=== PATIENT | female | born 1945 | race Caucasian/White ===

== ENCOUNTER 2021-01-26 14:24 | Emergency (ER) | payer MEDICARE, SELFPAY ==
--- NOTE | 2021-01-26 14:26 | ED.URI ---
HPI - URI/Sore Throat General Chief Complaint: Upper Respiratory Infection Stated Complaint: COUGH Time Seen by Provider: 01/26/21 14:26 Source: patient and RN notes reviewed History of Present Illness HPI Narrative: Patient is a 75-year-old female who presents the urgent care with complaints of a deep cough. Patient states that it started on , she called her doctor's office on Wednesday, and was placed on amoxicillin and 10 mg of prednisone daily. Patient states that she has been getting some stuff out but does feel like she is using her inhaler more frequently. Patient denies of any fevers, nausea, vomiting, congestion. States that she had a aortic valve replacement in November and is being very cautious . Patient states that she is supposed to start cardiac rehab tomorrow and is worried about walking on the treadmill for 25 minutes. Patient denies of any chest pains. No other acute complaints. No acute distress noted. Patient aware of the plan of care. Some parts of this dictation were generated by voice recognition software and may contain typographical and/or grammatical inaccuracies. Related Data Home Medications Medication Instructions Recorded Confirmed acetaminophen [Tylenol] 650 mg PO ONCE 01/23/21 01/23/21 albuterol sulfate 1 puff INHALATION DAILY PRN 01/23/21 01/23/21 ascorbic acid (vitamin C) [Vitamin 500 mg PO DAILY 01/23/21 01/23/21 C] azelastine 1 spray INTRANASAL Q12H 01/23/21 01/23/21 cetirizine [Zyrtec] 10 mg PO DAILY 01/23/21 01/23/21 cholecalciferol (vitamin D3) 125 mcg PO DAILY 01/23/21 01/23/21 [Vitamin D3] clopidogrel 75 mg PO DAILY 01/23/21 01/23/21 coenzyme Q10 [Co Q-10] 100 mg PO DAILY 01/23/21 01/23/21 cyanocobalamin-cobamamide [B12] 1 ronaldo SUBLINGUAL 01/23/21 dexlansoprazole [Dexilant] 60 mg PO DAILY 01/23/21 01/23/21 hydrochlorothiazide 25 mg PO DAILY 01/23/21 01/23/21 multivitamin 1 tablet PO DAILY 01/23/21 01/23/21 omega 3-fzz-isl-fish oil [Fish Oil] 1 cap PO 01/23/21 rosuvastatin [Crestor] 10 mg PO DAILY 01/23/21 01/23/21 Allergies Allergy/AdvReac Type Severity Reaction Status Date / Time No Known Allergies Allergy Unknown Verified 01/26/21 14:32 Review of Systems Review of Systems: Narrative: CONSTITUTIONAL: Denies fever, chills, or sweats. EYES: Denies visual changes, redness, or discharge. ENT: Denies rhinorrhea, congestion, sore throat, or otalgia. CARDIOVASCULAR: Denies chest pain, palpitations, or edema. RESPIRATORY: Reports of deep harsh cough with intermittent production and dyspnea GASTROINTESTINAL: Denies abdominal pain, nausea, vomiting, or diarrhea. GENITOURINARY: Denies dysuria or hematuria. SKIN: Denies rash or itching. MUSCULOSKELETAL: Denies back pain, joint pain, or myalgia. NEUROLOGIC: Denies headache, numbness, or weakness. All other systems reviewed are negative, except as documented in HPI. [facility] Family History Family History (Updated 01/23/21 @ 12:12 by Eula Jenkins RN) Father HLD (hyperlipidemia) Cerebrovascular accident Sibling HLD (hyperlipidemia) Mother Cancer Social History Social History Smoking status: Never smoker Second hand tobacco smoke exposure: Yes ( former smoker and parents smoked as she grew up) Comments At the time of my signature, I reviewed and agree with the nursing past medical, surgical, social, and family history. There is no relevant family history pertinent to the patient complaint. Exam Narrative: Exam Narrative: GENERAL: This is a well-nourished, well-developed patient, in no apparent distress. HEAD: normocephalic, atraumatic. EYES: PERRL. Sclera clear/white. Vision is grossly intact. EARS: External ears normal NOSE: External nose normal with no obvious nasal discharge, nares without redness, no rhinorrhea. THROAT: Mucous membranes moist, posterior pharynx clear. NECK: Neck supple CARDIOVASCULAR: Regular rate and rhythm with murmurs RESPIRATORY: Clear to auscultation. Breath soun
[2021-01-26 14:35] VITALS: BP 102/78; PULSE 79; RESP 16; TEMP 36.3; O2SAT 98
== END 2021-01-26 14:50 | disposition home or self-care (01) ==
PROVIDERS: Emergency Provider Nurse Practitioner Family
DX: J40 Bronchitis, not specified as acute or chronic (principal); K21.9 Gastro-esophageal reflux disease without esophagitis; Z95.2 Presence of prosthetic heart valve; M17.12 Unilateral primary osteoarthritis, left knee; M16.11 Unilateral primary osteoarthritis, right hip
CPT/HCPCS: 99213; G0463

== ENCOUNTER 2021-02-20 07:30 | Outpatient (RCR) | payer MEDICARE, SELFPAY ==
[2021-01-23 12:08] VITALS: BP 160/80; PULSE 67; RESP 16; TEMP 35.6; O2SAT 98
== END 2021-02-20 09:20 | disposition home or self-care (01) ==
LOC: ANHCPREHAB 07:30
DX: Z95.2 Presence of prosthetic heart valve (principal)
CPT/HCPCS: 93798

== ENCOUNTER 2022-02-05 07:46 | Outpatient (CLI) | payer MEDICARE, SELFPAY ==
--- NOTE | ~2022-02-05 | MR_ITS ---
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 Sequences included sagittal T1-weighted FSE, sagittal fluid sensitive FSE STIR, coronal PD-weighted FS FSE, coronal T1-weighted FSE, axial PD-weighted FS FSE, and axial PD-weighted FSE. COMPARISON: None FINDINGS: Medial ankle ligaments: Deep and superficial deltoid ligaments as well as the spring ligament are normal. Lateral ankle ligaments: The anterior and posterior inferior tibiofibular ligaments are normal. The anterior talofibular, calc aneofibular and posterior talofibular ligaments are normal. Tendons: Achilles tendon is normal. The peroneus longus and brevis tendons are normal. The tibialis anterior a nd extensor hallucis longus and extensor digitorum longus tendons are normal. The tibialis posterior, flexor digitorum longus and flexor hallucis longus tendons are normal. Plantar fascia: Relatively low signal intensity thickening of the proximal 3.5 cm of the central component of the vicki ntar aponeurosis consistent with provided history of plantar fibromatosis. Bones/other: Bone alignment is normal. There is marrow edema along an oblique irregular low signal intensity likel y stress fracture line at the inferior aspect of the posterior calcaneus. 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 Additional mild subarticular edema at the central aspect of the proximal articular surface of the navicular. Marrow signal is otherwise normal throughout with no other fractures or pathologic marrow replacing process. Fluid: Physiologic amount of fluid in the joint spaces. No abnormal fluid collections. IMPRESSION: 1. Likely stress fracture line at the plantar aspect of the posterior calcaneus. 2. Thickening of the proximal central component of the plantar aponeurosis consistent with provided h istory of plantar fibromatosis. Reviewed, dictated and finalized at location A. IMPRESSION: 1. Likely stress fracture line at the plantar aspect of the posterior calcaneus . 2. Thickening of the proximal central component of the plantar aponeurosis cons istent with provided history of plantar fibromatosis.
== END 2022-02-05 07:47 | disposition home or self-care (01) ==
PROVIDERS: Visit Provider Podiatrist Foot & Ankle Surgery
DX: M72.2 Plantar fascial fibromatosis (principal); R93.7 Abnormal findings on diagnostic imaging of other parts of musculoskeletal system
CPT/HCPCS: 73718

== ENCOUNTER → 2022-09-04 08:55 | Outpatient (CLI) | payer MEDICARE, SELFPAY ==
--- NOTE | ~2022-09-04 | MR_ITS ---
EXAMINATION: MR foot RT wo con DATE: 09/04/2022 09:40 INDICATION: Right foot stress fracture TECHNIQUE: Magnetic resonance imaging (MRI) of the affected ankle was performed without intravenous c ontrast. Sequences included axial and coronal PD-weighted FS FSE, sagittal and coronal T1-weighted FS E, axial PD-weighted FSE and sagittal fluid sensitive FSE STIR. COMPARISON: None. FINDINGS: Medial ankle ligaments: Deep and superficial deltoid ligaments as well as the spring ligament are normal. Lateral ankle ligaments: The anterior and posterior inferior tibiofibular ligaments are normal. The anterior talofibular, calc aneofibular and posterior talofibular ligaments are normal. Tendons: Minimal Achilles tendinosis without tear. Small enthesophyte at the calcaneal insertion of the Achill es tendon. The peroneus longus and brevis tendons are normal. The tibialis anterior and extensor goodwin ucis longus and extensor digitorum longus tendons are normal. The tibialis posterior, flexor digitoru m longus and flexor hallucis longus tendons are normal. Plantar fascia: Small plantar calcaneal enthesophyte with prominent thickening and mild increased signal of the centr al component of the plantar aponeurosis which appears to extend to its origin. There is minimal marro w edema at its calcaneal origin consistent with likely chronic moderate enthesopathy with superimpose d mild acute plantar fasciitis. Bones/other: There is prominent marrow edema in the central portion of the calcaneus surrounding 2 linear low sign al intensity stress fracture lines each extending approximately a millimeter cephalad from the planta r cortex, the first the junction of the anterior to middle thirds of the calcaneus and the second at the junction of the middle and posterior thirds. Bone alignment is normal. No other fractures identif ied. Mild osteoarthritis at the right ankle and majority of the joints in the mid and hindfoot. Lisfr anc ligament complex is normal. Fluid: Physiologic amount fluid in the joint spaces. No bursitis, tenosynovitis or other abnormal fluid marco ections. IMPRESSION: 1. Right-sided marrow edema associated with a couple stress fracture extending cephalad from the plan tar margin of the calcaneus 2. 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 Reviewed, dictated and finalized at location A. RECORDER IMPRESSION: 1. Right-sided marrow edema associated with a couple stress fracture extending cephalad from the plantar margin of the calcaneus 2. 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
== END ==
PROVIDERS: PCP Podiatrist Foot & Ankle Surgery; Visit Provider Podiatrist Foot & Ankle Surgery
DX: M84.374K Stress fracture, right foot, subsequent encounter for fracture with nonunion (principal)
CPT/HCPCS: 73718

== ENCOUNTER 2023-05-11 08:01 | Emergency (ER) | payer MEDICARE, SELFPAY ==
[2023-05-11 08:14] VITALS: BP 122/67; PULSE 84; RESP 16; TEMP 36.6; O2SAT 100
--- NOTE | 2023-05-11 08:17 | ED.URI ---
HPI - URI/Sore Throat General Chief Complaint: Upper Respiratory Infection Stated Complaint: COUGH Time Seen by Provider: 05/11/23 08:15 Source: patient Mode of arrival: ambulatory Limitations: no limitations History of Present Illness HPI Narrative: Kenyatta is an 78-year-old female patient presenting to the clinic today with complaints of a cough x3 weeks. She reports she has been placed on Augmentin azithromycin by her provider. She does have a history of asthma and sinusitis. She denies any shortness of breath and is using her albuterol inhaler 4 times a day for cough. She denies any fever or chills. Cough is nonproductive. MD elicited complaint: cough Related Data Home Medications Medication Instructions Recorded Confirmed albuterol sulfate 90 mcg/actuation 1 puff inhalation DAILY PRN Cough 01/23/21 05/11/23 aerosol inhaler ascorbic acid (vitamin C) 500 mg 500 mg PO DAILY 01/23/21 05/11/23 tablet (Vitamin C) azelastine 137 mcg (0.1 %) nasal 1 spray intranasal Q12H allergy 01/23/21 05/11/23 spray aerosol cetirizine 10 mg tablet (Zyrtec) 10 mg PO DAILY 01/23/21 05/11/23 cholecalciferol (vitamin D3) 125 125 mcg PO DAILY 01/23/21 05/11/23 mcg (5,000 unit) tablet (Vitamin D3) coenzyme Q10 100 mg capsule (Co 100 mg PO DAILY 01/23/21 05/11/23 Q-10) cyanocobalamin (B12)-cobamamide 1 ronaldo sublingual DAILY 01/23/21 05/11/23 5,000 mcg-100 mcg sublingual lozenge (B12) dexlansoprazole 60 mg 60 mg PO DAILY 01/23/21 01/26/21 capsule,biphase delayed release (Dexilant) hydrochlorothiazide 25 mg tablet 25 mg PO DAILY 01/23/21 01/26/21 multivitamin 1 tablet PO DAILY 01/23/21 01/26/21 omega 6-wbk-ijs-fish oil 900 1 cap PO DAILY 01/23/21 01/26/21 mg-1,400 mg capsule,delayed release (Fish Oil) rosuvastatin 10 mg tablet (Crestor) 10 mg PO DAILY 01/23/21 05/11/23 propranolol 60 mg capsule,24 60 mg PO DAILY 05/11/23 05/11/23 hr,extended release valsartan 160 mg tablet mg 05/11/23 05/11/23 Allergies Allergy/AdvReac Type Severity Reaction Status Date / Time No Known Allergies Allergy Unknown Verified 05/11/23 08:14 Review of Systems Review of Systems: Pertinent positives per HPI. Patient denies any fever, chills, rash, headache, visual changes, dizziness, shortness of breath, chest pain, palpitations, nausea, vomiting, diarrhea, constipation, abdominal pain, or any urinary issues. [facility] Family History Family History (Updated 01/23/21 @ 12:12 by Eula Jenkins RN) Father HLD (hyperlipidemia) Cerebrovascular accident Sibling HLD (hyperlipidemia) Mother Cancer Social History Social History Smoking status: Never smoker Second hand tobacco smoke exposure: Yes ( former smoker and parents smoked as she grew up) Comments At the time of my signature, I reviewed and agree with the nursing past medical, surgical, social, and family history. There is no relevant family history pertinent to the patient complaint. Exam Narrative: General: Well-developed, well nourished, in no apparent distress Head: Normocephalic, atraumatic Eyes: Pupils equally round and reactive to light bilaterally, EOM intact, sclera and conjunctive clear, no discharge, lids normal Ears: TMs intact and clear, ear canals clear, no drainage, grossly hearing normal. Nose: Nares patent, clear discharge, no inflammation, maxilla sinus tenderness. Mouth: Oral pharynx without lesions or masses, good dentition, MMM. Postnasal drip Neck: Supple, trachea midline, no enlargement of anterior or posterior cervical nodes, no thyroid masses or goiter palpable. Cardio: Regular rate and rhythm, s1 and s2 normal, no murmur appreciated. Resp: Clear to auscultation bilaterally, no rhonchi, rales, wheezing or rubs Course Course Emergency Course: Portions of this record may have been created with voice recognition software. Level of Care: Express Care Visit Vital Signs Vital signs: Vital Si
[2023-05-11 08:20] VITALS: BP 122/67; PULSE 84; RESP 16; TEMP 36.6; O2SAT 100
== END 2023-05-11 08:25 | disposition home or self-care (01) ==
PROVIDERS: Emergency Provider Nurse Practitioner Family
DX: J32.9 Chronic sinusitis, unspecified (principal); R09.82 Postnasal drip; I10 Essential (primary) hypertension; Z95.2 Presence of prosthetic heart valve; K21.9 Gastro-esophageal reflux disease without esophagitis; M16.11 Unilateral primary osteoarthritis, right hip; M17.12 Unilateral primary osteoarthritis, left knee
CPT/HCPCS: 99213; G0463

== ENCOUNTER 2023-05-29 09:27 | Emergency (ER) | payer MEDICARE, SELFPAY ==
[2023-05-29 09:39] VITALS: BP 118/74; PULSE 71; RESP 16; TEMP 36.2; O2SAT 96
--- NOTE | 2023-05-29 10:01 | ED.FEMALEGU ---
HPI - Female Genitourinary General Chief complaint: Urogenital-Female Stated complaint: UTI SYMPTOMS Source: patient and RN notes reviewed Mode of arrival: ambulatory Limitations: no limitations History of Present Illness HPI Narrative: 78-year-old female presented for complaint of burning with urination, frequency, urgency, pressure over the past few days. Today she noticed blood tinged urine. Denies significant history of UTIs. Not taking anything for symptoms. Denies abdominal pain, flank pain, n/v/d/f/c. Related Data Home Medications Medication Instructions Recorded Confirmed albuterol sulfate 90 mcg/actuation 1 puff inhalation DAILY PRN Cough 01/23/21 05/29/23 aerosol inhaler azelastine 137 mcg (0.1 %) nasal 1 spray intranasal Q12H allergy 01/23/21 05/29/23 spray aerosol cetirizine 10 mg tablet (Zyrtec) 10 mg PO DAILY 01/23/21 05/29/23 cholecalciferol (vitamin D3) 125 125 mcg PO DAILY 01/23/21 05/29/23 mcg (5,000 unit) tablet (Vitamin D3) coenzyme Q10 100 mg capsule (Co 100 mg PO DAILY 01/23/21 05/29/23 Q-10) cyanocobalamin (B12)-cobamamide 1 ronaldo sublingual DAILY 01/23/21 05/29/23 5,000 mcg-100 mcg sublingual lozenge (B12) dexlansoprazole 60 mg 60 mg PO DAILY 01/23/21 05/29/23 capsule,biphase delayed release (Dexilant) hydrochlorothiazide 25 mg tablet 25 mg PO DAILY 01/23/21 05/29/23 multivitamin 1 tablet PO DAILY 01/23/21 05/29/23 omega 4-zpq-lee-fish oil 900 1 cap PO DAILY 01/23/21 05/29/23 mg-1,400 mg capsule,delayed release (Fish Oil) rosuvastatin 10 mg tablet (Crestor) 10 mg PO DAILY 01/23/21 05/29/23 propranolol 60 mg capsule,24 60 mg PO DAILY 05/11/23 05/29/23 hr,extended release valsartan 160 mg tablet 160 mg PO DAILY 05/11/23 05/11/23 Allergies Allergy/AdvReac Type Severity Reaction Status Date / Time No Known Allergies Allergy Unknown Verified 10/07/23 09:37 Review of Systems Review of Systems: CONSTITUTIONAL: Denies body aches, fever, chills, or sweats. CARDIOVASCULAR: Denies chest pain, palpitations, or edema. RESPIRATORY: Denies cough or dyspnea. GASTROINTESTINAL: Denies abdominal pain, nausea, vomiting, denies flank pain SKIN: Denies rash, itching, or wounds. MUSCULOSKELETAL: Denies back pain or myalgia. [facility] Past Medical History Medical History (Updated 05/29/23 @ 10:07 by Nanette Hitchcock APRN) HTN (hypertension) Family History Family History Father HLD (hyperlipidemia) Cerebrovascular accident Sibling HLD (hyperlipidemia) Mother Cancer Social History Social History Smoking status: Never smoker Second hand tobacco smoke exposure: Yes ( former smoker and parents smoked as she grew up) Comments At time of signature, I have reviewed and agree with nursing past medical, surgical, social and family history unless otherwise noted. Please see nursing chart for further information. There is no relevant family history pertinent to the presenting complaint Exam Narrative: GENERAL: Well-appearing and in no acute distress. HEAD: Normocephalic EYES: EOMI. . ENT: Mucous membranes pink and moist. NECK: Normal AROM. Supple. CHEST: No respiratory distress. Clear to auscultation. HEART: Regular rate and rhythm. ABDOMEN: Soft, nontender, nondistended, normal active bowel sounds. No CVA tenderness MUSCULOSKELETAL: No bony tenderness. SKIN: Warm, dry, no rash. NEURO: No focal deficits. Alert and oriented x3. Gait steady. PSYCH: Normal affect. Course Course Emergency Course: Patient is aware of diagnosis, understands and agrees to treatment plan. Anticipatory guidance given. Patient agrees to follow-up as directed and is aware of reasons to seek care at the emergency department. Portions of this record may have been created with voice recognition software Level of Care: Express Care Visit Vital Signs Vi
== END 2023-05-29 10:09 | disposition home or self-care (01) ==
PROVIDERS: Emergency Provider Nurse Practitioner Family
DX: N39.0 Urinary tract infection, site not specified (principal); B96.20 Unspecified Escherichia coli [E. coli] as the cause of diseases classified elsewhere; I10 Essential (primary) hypertension
CPT/HCPCS: 81003; 87077; 87086; 87186; 99213; G0463

== ENCOUNTER → 2023-07-13 11:18 | Outpatient (CLI) | payer MEDICARE, SELFPAY ==
--- NOTE | ~2023-07-13 | XR_ITS ---
EXAMINATION: XR lumbar spine 6V w bending DATE: 07/13/2023 12:05 INDICATION: Lumbar radiculopathy TECHNIQUE: Anteroposterior, lateral in neutral, flexion and extension, and bilateral oblique views of the lumbar spine, and cone-down lateral view of the lumbosacral junction were obtained. COMPARISON: None. FINDINGS: Fluoroscopy for lumbar levoscoliosis is noted. There are changes of anterior and posterior fusion at L2-3. There are 2 mm of anterolisthesis of L4 on L5. No hypermobility is present with flexi on or extension. The vertebral body heights are maintained. There is moderate loss of intervertebral disc space heights at L1-2, L4-5, and L5-S1. There is no fracture. There is severe facet joint osteoa rthritis at L4-5 and L5-S1. IMPRESSION: 1. Moderate lumbar spondylosis without acute findings. Reviewed, dictated and finalized at location F. SPOOLER
== END ==
PROVIDERS: PCP Physical Medicine & Rehabilitation; Visit Provider Physical Medicine & Rehabilitation
DX: M54.16 Radiculopathy, lumbar region (principal); M43.06 Spondylolysis, lumbar region
CPT/HCPCS: 72114

== ENCOUNTER 2024-04-10 10:01 | Emergency (ER) | payer MEDICARE, SELFPAY ==
--- NOTE | 2024-04-10 10:14 | ED.FEMALEGU ---
HPI - Female Genitourinary General Chief complaint: Urogenital-Female Stated complaint: Uti Symtoms Time Seen by Provider: 04/10/24 10:17 Source: patient Mode of arrival: ambulatory Limitations: no limitations History of Present Illness HPI Narrative: Kenyatta is an 79-year-old female patient presenting to the clinic today with complaints of possible UTI. She reports that she is having some burning with urination and itchy vulva times 10 days. She denies any abdominal pain or back pain. She denies any fever, chills, body aches, nausea, or vomiting. Related Data Home Medications Medication Instructions Recorded Confirmed cetirizine 10 mg tablet (Zyrtec) 10 mg PO DAILY 01/23/21 04/10/24 cholecalciferol (vitamin D3) 125 125 mcg PO DAILY 01/23/21 04/10/24 mcg (5,000 unit) tablet (Vitamin D3) coenzyme Q10 100 mg capsule (Co 100 mg PO DAILY 01/23/21 04/10/24 Q-10) cyanocobalamin (B12)-cobamamide 1 ronaldo sublingual DAILY 01/23/21 04/10/24 5,000 mcg-100 mcg sublingual lozenge (B12) dexlansoprazole 60 mg 60 mg PO DAILY 01/23/21 04/10/24 capsule,biphase delayed release (Dexilant) multivitamin 1 tablet PO DAILY 01/23/21 04/10/24 omega 9-wcg-ars-fish oil 900 1 cap PO DAILY 01/23/21 04/10/24 mg-1,400 mg capsule,delayed release (Fish Oil) rosuvastatin 10 mg tablet (Crestor) 10 mg PO DAILY 01/23/21 04/10/24 propranolol 60 mg capsule,24 60 mg PO DAILY 05/11/23 04/10/24 hr,extended release dexlansoprazole 60 mg mg 04/10/24 capsule,biphase delayed release fluticasone propionate 50 2 spray intranasal DIRECTED 04/10/24 04/10/24 mcg/actuation nasal spray,suspension magnesium oxide 400 mg (241.3 mg 1 mg PO DAILY 04/10/24 04/10/24 magnesium) tablet meloxicam 15 mg tablet 15 mg PO DAILY 04/10/24 04/10/24 montelukast 10 mg tablet 10 mg PO DAILY 04/10/24 04/10/24 potassium chloride 10 mEq 10 meq PO DAILY 04/10/24 04/10/24 tablet,extended release valsartan 160 1 tablet PO DAILY 04/10/24 04/10/24 mg-hydrochlorothiazide 25 mg tablet Allergies Allergy/AdvReac Type Severity Reaction Status Date / Time No Known Allergies Allergy Unknown Verified 04/10/24 10:09 Review of Systems Review of Systems: Pertinent positives per HPI. Patient denies any fever, chills, rash, headache, visual changes, dizziness, cough, runny nose, sore throat, shortness of breath, chest pain, palpitations, nausea, vomiting, diarrhea, constipation, abdominal pain. [facility] Past Medical History Medical History HTN (hypertension) Family History Family History Father HLD (hyperlipidemia) Cerebrovascular accident Sibling HLD (hyperlipidemia) Mother Cancer Social History Social History Smoking status: Never smoker Second hand tobacco smoke exposure: Yes ( former smoker and parents smoked as she grew up) Comments At the time of my signature, I reviewed and agree with the nursing past medical, surgical, social, and family history. There is no relevant family history pertinent to the patient complaint. Exam Narrative: General: Well-developed, well nourished, in no apparent distress. Head: Normocephalic, atraumatic. Cardio: Regular rate and rhythm, s1 and s2 normal, no murmur appreciated. Resp: Clear to auscultation bilaterally, no rhonchi, rales, wheezing or rubs. Abdomen: Soft, pliable, bowel sounds present in all quadrants, non-tender to palpation, no organomegly, no CVAT tenderness. : Deferred-patient declined vaginal exam Course Course Emergency Course: Portions of this record may have been created with voice recognition software. Level of Care: Express Care Visit Vital Signs Vital signs: Vital Signs Temperature 36.3 C L 04/10/24 10:15 Pulse Rate 66 04/10/24 10:15 Respiratory Rate 15 04/10/24 1
[2024-04-10 10:15] VITALS: BP 113/75; PULSE 66; RESP 15; TEMP 36.3; O2SAT 97
[2024-04-10 10:26] LABS: EDUAAPPEAR Clear; EDUABILI Negative; EDUABLOOD Negative; EDUACOLOR1 Yellow; EDUAGLUCOSE Negative; EDUAKETONE Negative; EDUALEUKO Negative; EDUANITRATE Negative; EDUAPH 5.5; EDUAPROTEIN Negative; EDUAUROBILI 0.2
== END 2024-04-10 10:39 | disposition home or self-care (01) ==
PROVIDERS: Emergency Provider Nurse Practitioner Family
DX: B37.31 Acute candidiasis of vulva and vagina (principal); I10 Essential (primary) hypertension
CPT/HCPCS: 81003; 87086; 99213; G0463

== ENCOUNTER 2025-01-11 10:25 | Outpatient (CLI) | payer MEDICARE, SELFPAY ==
--- NOTE | ~2025-01-11 | XR_ITS ---
AP view of the pelvis Clinical history: Sacroiliitis Findings: No acute fracture or dislocation is seen. Osseous alignment is anatomic. Bilateral hip join ts are intact. There is mild degenerative change of both SI joints. Soft tissues are unremarkable. 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 Reviewed, dictated and finalized at location . 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
== END 2025-01-11 10:26 | disposition home or self-care (01) ==
LOC: MICIMG 10:27
PROVIDERS: PCP Physical Medicine & Rehabilitation Pain Medicine; Visit Provider Physical Medicine & Rehabilitation Pain Medicine
DX: M47.898 Other spondylosis, sacral and sacrococcygeal region (principal)
CPT/HCPCS: 72170